=== PATIENT | female | born 1985 | race Caucasian/White ===

== ENCOUNTER 2018-06-17 06:38 | Day surgery (SDC) | payer OTHER ==
[~2018-06-17 06:38] MED LIST: COLACE100 MG PO; IRON1TAB4 PO; PERCOCET 5-3251 EACH PO
[2018-06-17] MEDS ORDERED: PERCOCET 5-3251 EACH PO (11:26)
[2018-06-17] MEDS ORDERED: COLACE100 MG PO (11:26)
== END 2018-06-17 13:50 | disposition home or self-care (01) ==
LOC: CIR.AMB 06:38
DX: K60.3 Anal fistula (principal); K62.89 Other specified diseases of anus and rectum